=== PATIENT | female | born 1985 | race Caucasian/White ===

== ENCOUNTER 2022-05-10 11:19 | Emergency (ER) | payer OTHER, SELFPAY ==
[2022-05-10 11:32] VITALS: BP 111/60; PULSE 69; RESP 20; TEMP 37.2; O2SAT 100
--- NOTE | 2022-05-10 11:32 | ED.FEMALEGU ---
HPI - Female Genitourinary General Chief complaint: Urogenital-Female Stated complaint: possible uti Time Seen by Provider: 05/10/22 11:32 Source: patient, RN notes reviewed and old records reviewed Mode of arrival: ambulatory Limitations: no limitations History of Present Illness HPI Narrative: 36-year-old female who presents to [facility] with complaints of urinary tract infection symptoms which include frequency,urgency, decreased urine output and low back pain for 3 day duration. Patient reports history of past urinary tract infections with similar symptoms. Patient reports that she did take some AZO when she first started with symptoms but none for past 2 days. Patient reports that she is on menses at this time, denies any itching or concern for STD exposure. Patient denies any fevers, chills or sweats, denies any nausea or vomiting. MD elicited complaint: UTI Pertinent past history: other (UTI with similar symptoms.) Onset (ago): day(s) (3) Location of symptoms: low back Severity: moderate Severity scale (1-10): 6 Related Data Home Medications Medication Instructions Recorded Confirmed bupropion HCl 150 mg 24 hr tablet, 150 mg PO DAILY 05/10/22 05/10/22 extended release hydroxyzine HCl 50 mg tablet 50 mg PO DAILY 05/10/22 05/10/22 sertraline 50 mg tablet 50 mg PO DAILY 05/10/22 05/10/22 trazodone 50 mg tablet 50 mg PO DAILY 05/10/22 05/10/22 Allergies Allergy/AdvReac Type Severity Reaction Status Date / Time No Known Allergies Allergy Verified 05/10/22 11:45 Review of Systems Review of Systems: CONSTITUTIONAL: Denies fever, chills, or sweats. CARDIOVASCULAR: Denies chest pain, palpitations, or edema. RESPIRATORY: Denies cough or dyspnea. GASTROINTESTINAL: Denies abdominal pain, nausea, vomiting, or diarrhea. GENITOURINARY: Voiding in small amounts,, frequency, urgency. Denies flank pain or hematuria, is on menses SKIN: Denies rash or itching. MUSCULOSKELETAL: reports low back pain or myalgia. Denies CVA tenderness NEUROLOGIC: Denies headache All systems reviewed & are unremarkable except as noted in HPI and below PMFSH Past Medical History Medical History (Updated 05/11/22 @ 08:52 by Karine Coronado NP) Anxiety and depression UTI (urinary tract infection) Surgical History Surgical History (Updated 05/10/22 @ 11:40 by Karine Coronado NP) History of tubal ligation Social History Social History (Updated 05/11/22 @ 08:50 by Karine Coronado NP) Smoking packs per day: 0.5 Smoking cigarettes per day: 10.0 Years smoked: 20 Smoking pack-years: 10.00 Smoking status: Current every day smoker Tobacco type: cigarettes Alcohol intake: former Substance use: former 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 There is no relevant family history pertinent to the presenting complaint Exam Narrative: GENERAL: Well-appearing, well-nourished, and in no acute distress. HEAD: Normocephalic, atraumatic. NECK: Supple.no lymphadenopathy CHEST: Clear to auscultation. No respiratory distress.SAO2 100% on room air HEART: Regular rate and rhythm. No murmur heard. Normal peripheral pulses. ABDOMEN: Soft, nontender to palpation, nondistended, normal active bowel sounds. No CVA tenderness EXTREMITIES: Normal range of motion. No edema.positive for low back pain non radiating SKIN: Warm, dry, no rash. NEURO: No focal deficits. Alert and oriented x3. Course Course Emergency Course: Patient is aware of diagnosis, understands and agrees to treatment plan.? Anticipatory guidance given.? Patient agrees to follow-up as directed and is aware of reasons to seek care at the emergency department. Portions of this record may have been created with voice recognition software Level of Care: Fili Almaguer
== END 2022-05-10 11:52 | disposition home or self-care (01) ==
PROVIDERS: Emergency Provider Registered Nurse
DX: N30.90 Cystitis, unspecified without hematuria (principal); F17.210 Nicotine dependence, cigarettes, uncomplicated; F41.9 Anxiety disorder, unspecified; F32.A Depression, unspecified
CPT/HCPCS: 81003; 87086; 99203; G0463

== ENCOUNTER 2024-02-06 10:33 | Emergency (ER) | payer OTHER, SELFPAY ==
[2024-02-06 10:45] VITALS: BP 95/60; PULSE 93; RESP 17; TEMP 37.3; O2SAT 100
--- NOTE | 2024-02-06 11:02 | ED_ITS ---
HPI - Ear Problem General Chief complaint: Ear Stated complaint: Ear Pain Source: patient Mode of arrival: ambulatory Limitations: no limitations History of Present Illness HPI Narrative: 38-year-old female presented for complaint of bilateral ear pain With decreased hearing. Onset yesterday. States the pain rotates between the 2 ears. Endorses nasal congestion and drainage. She denies tinnitus, dizziness, ear drainage, nausea, vomiting, diarrhea, fevers or chills. Not taking anything for symptoms. MD Complaint: ear pain Related Data Home Medications Medication Instructions Recorded Confirmed bupropion HCl 150 mg 24 hr tablet, 150 mg PO DAILY 05/10/22 05/10/22 extended release hydroxyzine HCl 50 mg tablet 50 mg PO DAILY 05/10/22 05/10/22 sertraline 50 mg tablet 50 mg PO DAILY 05/10/22 05/10/22 trazodone 50 mg tablet 50 mg PO DAILY 05/10/22 05/10/22 Allergies Allergy/AdvReac Type Severity Reaction Status Date / Time No Known Allergies Allergy Verified 05/10/22 11:45 Review of Systems Review of Systems: CONSTITUTIONAL: Denies malaise, chills, or fever. EYES: Denies visual changes, redness, or discharge. ENT: Denies sore throat. Reports ear pain rhinorrhea, congestion CARDIOVASCULAR: Denies chest pain, palpitations, or edema. RESPIRATORY: Denies cough or dyspnea. GASTROINTESTINAL: Denies abdominal pain, nausea, vomiting, diarrhea MUSCULOSKELETAL: Denies myalgia. NEUROLOGIC: Denies headache. 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 There is no relevant family history pertinent to the presenting complaint Exam Narrative: GENERAL: Well-appearing, well-nourished, and in no acute distress. EYES: PERRLA, conjunctivae clear ENT: Nares drainage in congestion. Mucous membranes moist. TM pearly jacinto with normal light reflex bilaterally; no tragal tenderness. Oropharynx not erythematous without lesions. Tonsils not enlarged and without exudate, no drooling, no hoarseness, no trismus, uvula midline. NECK: Supple. No lymphadenopathy CHEST: Clear to auscultation, breath sounds equal. No wheezing, rhonchi, rales, or stridor. No respiratory distress, speaks in full sentences. HEART: Regular rate and rhythm. No murmur heard. SKIN: Warm, dry, no rash. NEURO: Alert and oriented x3. PSYCH: Normal mood and affect Course Course Emergency Course: Patient is aware of diagnosis, understands and agrees to treatment plan. Anticipatory guidance given. Patient agrees to follow-up as directed and is aware of reasons to seek care at the emergency department. Portions of this record may have been created with voice recognition software Level of Care: Express Care Visit Vital Signs Vital signs: Vital Signs Temperature 99.2 F 02/06/24 10:45 Pulse Rate 93 02/06/24 10:45 Respiratory Rate 17 02/06/24 10:45 Blood Pressure 95/60 L 02/06/24 10:45 Pulse Oximetry 100 02/06/24 10:45 Temperature 99.2 F 02/06/24 10:45 Pulse Rate 93 02/06/24 10:45 Respiratory Rate 17 02/06/24 10:45 Blood Pressure 95/60 L 02/06/24 10:45 Pulse Oximetry 100 02/06/24 10:45 Reviewed Medical Decision Making MDM Narrative Medical decision making narrative: Discussed physical exam findings consistent with serous otitis, no infection noted. Advised supportive measures and signs/symptoms to go to the ER. Patient is appropriate for outpatient treatment and follow-up. Differential Diagnosis Differential Diagnosis: Coronavirus, strep pharyngitis, allergic rhinitis, upper respiratory tract infection, sinusitis, rhinosinusitis, nasopharyngitis, viral pharyngitis, otitis media, otitis externa, eustachian tube dysfunction, foreign body, cerumen impaction. Vital Signs Vital Signs: Vital Signs Temperature 99.2 F 02/06/24 10:45 Pulse Rate 93 02/06/24 10:45 Respiratory Rate 17 02/06/24 10:45 Blood Pressure 95/60 L 02/06/24 10:45 Pulse Oximetry 100 02/06/24 10:45 Temperature 99.2 F 02/06/24 10:45 Pulse Rate 93 02/06/24 10:45 Respiratory Rate 17 02/06/24 10:45 Blood Pressure 95/60 L 02/06/24 10:45 Pulse Oximetry 100 02/06/24 10:45 Discharge Plan Discharge Clinical Impression: Acute serous otitis media Patient Disposition: Home, Self-Care Condition: Stable Instructions: Antibiotic Form, Fluid In The Ear (Serous Otitis Media) (ED) Additional Instructions: Recommendations for fluid in the ears: antihistamine such as Benadryl, Zyrtec or Alessandra for sinus congestion Flonase nasal spray, 1 spray in each nostril once daily until symptoms improve Increase humidity of the air at home. Tylenol and ibuprofen every 8 hours as needed to reduce fever, pain Please schedule a follow-up visit with your personal physician within 3-5days. If your symptoms persist, change or worsen significantly, go to the emergency department for further evaluation. Prescriptions: No Action sulfamethoxazole-trimethoprim [Bactrim DS] 800-160 mg tablet 1 tablet PO Q12H Qty: 6 0RF bupropion HCl 150 mg tablet extended release 24 hr 150 mg PO DAILY trazodone 50 mg tablet 50 mg PO DAILY hydroxyzine HCl 50 mg tablet 50 mg PO DAILY sertraline 50 mg tablet 50 mg PO DAILY phenazopyridine [Pyridium] 200 mg tablet 200 mg PO TID PRN (Reason: pain) Qty: 6 0RF Follow-up/Referrals: PHYSICIAN,RESEARCH CHIEF ENGINEER [Primary Care Provider] -
== END 2024-02-06 11:09 | disposition home or self-care (01) ==
PROVIDERS: Emergency Provider Nurse Practitioner Family
DX: H65.03 Acute serous otitis media, bilateral (principal); F17.210 Nicotine dependence, cigarettes, uncomplicated; F17.290 Nicotine dependence, other tobacco product, uncomplicated; F41.9 Anxiety disorder, unspecified; F32.A Depression, unspecified
CPT/HCPCS: 99211; G0463